=== PATIENT | female | born 1995 | race African-American/Black ===

== ENCOUNTER 2017-09-01 07:40 | Emergency (ER) | payer OTHER ==
[~2017-09-01] VITALS: Ht 162.6 cm; Wt 77.1 kg
[~2017-09-01 07:40] MED LIST: CIPRO500 M1 PO; MACROBID100 MG PO; MOTRIN 800MG T800 MG PO; PERCOCET 325 MG1 TA2 PO; PROTONIX40 M3 PO; PYRIDIUM100 M1 PO
--- NOTE | 2017-09-01 07:52 | ED THROAT/DENTAL COMPLAINT ---
History of Present Illness General Chief Complaint: General Adult Stated Complaint: SOB,THROAT/DENTAL PAIN Source: patient, old records Exam Limitations: no limitations Vital Signs & Intake/Output Vital Signs & Intake/Output Vital Signs Date Time Temp Pulse Resp B/P B/P Pulse O2 O2 Flow FiO2 Mean Ox Delivery Rate 09/01 0805 98.0 74 18 112/74 99 Room Air 09/01 0756 99 Room Air 09/01 0744 97.0 87 20 117/72 99 Room Air Allergies Coded Allergies: NO KNOWN ALLERGIES (04/03/16) Reconcile Medications Amoxicillin/Potassium Clav (Augmentin 875-125 Tablet) 875 MG-125 MG TABLET 1 TAB PO BID URI Ciprofloxacin HCl (Cipro) 500 MG TABLET 1 TAB PO BID UTI Naproxen 500 MG TABLET 1 TAB PO BID PRN PAIN Pantoprazole Sodium (Protonix) 40 MG TABLET.DR 1 TAB PO DAILY Gastirits Phenazopyridine HCl (Pyridium) 100 MG TABLET 1 TAB PO TID PRN DYSURIA TAKE WITH FOOD Triage Note: PT STATES RECENT URI WENT TO [facility] AND RX'D MOTRIN. STATES SYMPTOMS GETTING WORSE. STATES SORE THROAT, CONGESTION Triage Nurses Notes Reviewed? yes Onset: Abrupt Duration: week(s): (1), constant Timing: recent history Injury Environment: home Severity: mild Severity Numbers: 4 No Modifying Factors: none Associated Symptoms: cough : No Patient currently breastfeeds: No HPI: 21-year-old female with no medical history presents complaining of a one-week history of rhinorrhea congestion bilateral ear pain and sore throat. She went to [facility] and the symptoms began however was only prescribed Motrin which she states is not helping. Reports a nonproductive cough no shortness of breath no nausea vomiting diarrhea. Multiple sick contacts at work with similar symptoms of chest pain (Augustin Horton) Past History Travel History Traveled to [place] past 21 day No Medical History Any Pertinent Medical History? see below for history Respiratory: asthma Surgical History Surgical History: Psychosocial History What is your primary language Swedish Tobacco Use: Never used ETOH Use: occasional use Illicit Drug Use: denies illicit drug use Family History Hx Contributory? No (Augustin Horton) Review of Systems Review of Systems Constitutional: Reports: see HPI. Comments Review of systems: See HPI, All other systems negative. Constitutional, no chills no fever, HEENT: sore throat congestion, Cardiovascular: No chest pain , Skin: no rashes, no change in skin Respiratory: No dyspnea cough no sputum GI: No nausea no vomiting Muscle skeletal: No joint pain, no back pain Neurologic: , no headache Psych: No stress Heme/endocrine: No bruising Immunology: No lymphadenopathy (Augustin Horton) Physical Exam Physical Exam General Appearance: well developed/nourished, no apparent distress, alert Mouth/Throat: normal mouth inspection, pharynx normal Comments: Well-developed well-nourished patient in no apparent distress. Head/Face: Atraumatic, no maxillary/frontal sinus tenderness, no facial swelling Eyes: PERRL, EOMI, no conjunctival injection Ear:External auditory canal and Tympanic membranes clear, no erythema, no FB. Nose: atraumatic.Normal inspection Throat: Moist mucous membranes.Pharynx normal. No pharyngeal erythema/exudate seen. No stridor/drooling or assymetry. No swelling or edema. Neck: Supple, no lymphadenopathy, FROM Back: FROM Cardiovascular: Regular rate and rhythms no murmur Respiratory: No respiratory distress. Patient speaking in full complete sentences. Breath sounds clear to auscultation bilaterally: NO W/R/R Extremities: full range of motion Neuro: awake, alert, and oriented to person, place and time. There were no obvious focal neurologic abnormalities. Skin: Warm & dry;No appreciable rash on exposed skin Psych: Mood affect normal, normal memory normal judgment. Core Measures ACS in differential dx? No Sepsis Present: No Sepsis Focused Exam Completed? No (Augustin Horton) Progress Differential Diagnosis: epiglottitis, raz-tonsillar abscess, strep pharyngitis, uri, bronchitis, otitis, viral syndrome Plan of Care: I discussed with the patient at length plan of care I had an extensive conversation regarding need for close follow up with their primary care physician this week as well as return precautions. I answered all of their questions, they feel comfortable with the plan and follow-up care. I discussed with the patient the medications that they will receive. I gave them signs and symptoms that could indicate an adverse reaction. I have advised them to limit their activities until they can see how they respond to the medication. (Augustin Horton) Departure Departure Time of Disposition: 755 Disposition: HOME OR SELF CARE Condition: Stable Clinical Impression Primary Impression: URI (upper respiratory infection) Referrals: Patient Has No Primary Care Dr (PCP/Family) Additional Instructions: NAPROXEN FOR PAIN, AUGMENTIN DIRECTED. SALT WATER GARGLES, DRINK PLENTY OF FLUIDS. FOLLOW UP WITH YOUR PMD, RETURN WITH ANY CONCERNS Departure Forms: Customer Survey General Discharge Information Prescriptions: Current Visit Scripts Amoxicillin/Potassium Clav (Augmentin 875-125 Tablet) 1 TAB PO BID #14 TAB Naproxen 1 TAB PO BID PRN PAIN #30 TAB (Augustin Horton) PA/TALENT ACQUISITION ADMINISTRATOR Co-Sign Statement Statement: ED Attending supervision documentation- [] I saw and evaluated the patient. I have also reviewed all the pertinent lab results and diagnostic results. I agree with the findings and the plan of care as documented in the PA's/TALENT ACQUISITION ADMINISTRATOR's documentation. [X] I have reviewed the ED Record and agree with the PA's/TALENT ACQUISITION ADMINISTRATOR's documentation. [] Additions or exceptions (if any) to the PAs/TALENT ACQUISITION ADMINISTRATOR's note and plan are summarized below: [] (Rl STONE,Wally Miranda)
[2017-09-01] MEDS ORDERED: AUGMENTIN 875-1 EACH PO (07:57)
[2017-09-01] MEDS ORDERED: NAPROXEN500 M2 PO (07:57)
[2017-09-01 08:05] VITALS: BP 112/74
== END 2017-09-01 08:05 ==
LOC: ERH 07:40
DX: J06.9 Acute upper respiratory infection, unspecified (principal)